=== PATIENT | male | born 1985 | race Caucasian/White ===

== ENCOUNTER → 2017-05-27 | Outpatient (CLI) | payer OTHER ==
[~2017-05-27] MED LIST: AMT25 PO; FLX/5 PO; ULT/50 PO
[2017-05-27 17:35] LABS: BASO % 0.4 %; BASO ABS # 0.03 K/uL (0-0.2); EOS % 6.6 %; EOS ABS # 0.48 K/uL (0-0.5); HEMATOCRIT 40.9 % (42-52); HEMOGLOBIN 14.5 g/dL (14.0-18.0); IG# 0.01 K/uL (0.00-0.02); LYMPH % 42.7 %; LYMPH ABS # 3.11 K/uL (1.2-3.4); MEAN CELL VOLUME 85.7 fL (80-100); MEAN CORPUSCULAR HEMOGLOBIN 30.4 pg (25-34); MEAN CORPUSCULAR HGB CONC 35.5 g/dl (32-36); MEAN PLATELET VOLUME 9.2 fL (7.4-10.4); MONO ABS # 0.51 K/uL (0.11-0.59); NEUT % 43.2 %; NEUT ABS # 3.14 K/uL (1.4-6.5); PLATELET COUNT 314 K/uL (130-400); RED CELL DISTRIBUTION WIDTH CV 13.2 % (11.5-14.5); RED CELL DISTRIBUTION WIDTH SD 41.3 fL (36.4-46.3); WHITE BLOOD COUNT 7.28 K/uL (4.8-10.8)
[2017-05-27 18:45] LABS: ALBUMIN 4.2 gm/dl (3.4-5.0); ALKALINE PHOSPHATASE 100 U/L (45-117); ALT/SGPT 46 U/L (12-78); AST/SGOT 24 U/L (15-37); TOTAL PROTEIN 8.2 gm/dl (6.4-8.2)
== END | disposition home or self-care (01) ==
LOC: C.LABPBG 15:51
PROVIDERS: ATTEND Family Medicine
DX: F11.20 Opioid dependence, uncomplicated (principal)

== ENCOUNTER 2017-11-03 12:22 | Inpatient (IN) | payer OTHER ==
[~2017-11-03] VITALS: Ht 167.6 cm; Wt 73.7 kg
--- NOTE | 2017-11-03 13:12 | EMERGENCY ROOM VISIT NOTE ---
History Report prepared by Allan: Arvind Torres Under the Supervision of: Dr. Erica De La Torre D.O. First contact with patient: 12:37 Chief Complaint: MENTAL HEALTH EVALUATION Stated Complaint: 302 History of Present Illness The patient is a 32 year old male who presents to the Emergency Room with complaints of an episode of suicidal statements occurring last night. The patient states that he has a previous history of anxiety and hepatitis C from heroin use. He notes that he has been going to [facility] for medically assisted treatment. He reports that [facility] has become a negative situation for him and he states that it has started to become stressful for him because he is getting negative feedback from his family for going. He notes that he stopped going to [facility] for a while and he reports that he then went in again to [facility]. The patient states that he recently got into a fight with his girlfriend who told him not to come home. He notes that he went home yesterday and got into another argument with his girlfriend. He reports that he said something to his girlfriend to make her think that he was going to harm himself. The patient states that he said "you guys make me want to hang myself" to his girlfriend which caused her to worry. He notes that his girlfriend then called police and he reports that he was brought to the emergency department via a 302. The patient states that he "does not have the balls to harm himself." He notes that he does not have any physical symptoms, recent injury, and recent illness. He reports that he smokes cigarettes but does not drink alcohol. The patient states that he takes daily Suboxone and took methamphetamines yesterday. He notes that he has not used heroin for eight years. He reports that he has a history of an L4-L5 disc problem and kidney stones. Per nurse and security guards, the patient was brought in by [facility] but no report was given and there was no 302 brought in. Source of History: patient Onset: last night Position: head Quality: other (suicidal statements) Timing: other (an episode ) Note: The patient denies any physical complaints. Review of Systems See HPI for pertinent positives & negatives. A total of 10 systems reviewed and were otherwise negative. Past Medical & Surgical Medical Problems: (1) Anxiety (2) Depression (3) Hepatitis C (4) Heroin abuse (5) Kidney stone (6) Low back pain (7) Suicidal ideation Family History Hypertension Kidney disease Kidney stones Social History Smoking Status: Never Smoker Alcohol Use: none Drug Use: other (methamphetamine) Marital Status: in relationship Housing Status: lives with significant other Occupation Status: employed Current/Historical Medications Scheduled Meloxicam (Mobic), 7.5 MG PO DAILY Ranitidine Hcl (Zantac), 150 MG PO DAILY Allergies Coded Allergies: No Known Allergies (Unverified , 11/03/17) Physical Exam Vital Signs Date Time Temp Pulse Resp B/P (MAP) Pulse Ox O2 Delivery O2 Flow Rate FiO2 11/03/17 17:53 88 18 135/75 100 Room Air 11/03/17 16:18 86 18 132/70 100 Room Air 11/03/17 14:28 85 16 140/90 98 Room Air 11/03/17 12:28 37.0 112 20 145/73 99 Room Air Physical Exam GENERAL: alert, well appearing, well nourished, no distress, non-toxic EYE EXAM: normal conjunctiva, PERRL and EOM's grossly intact OROPHARYNX: no exudate, no erythema, lips, buccal mucosa, and tongue normal and mucous membranes are moist NECK: supple, no nuchal rigidity, no adenopathy, non-tender LUNGS: Clear to auscultation. Normal chest wall mechanics HEART: no murmurs, S1 normal and S2 normal ABDOMEN: abdomen soft, non-tender, normo-active bowel sounds, no masses, no rebound or guarding. BACK: Back is symmetrical on inspection and there is no deformity, no midline tenderness, no CVA tenderness. SKIN: no rashes and no bruising UPPER EXTREMITIES: upper extremities are grossly normal. LOWER EXTREMITIES: No pitting edema. NEURO EXAM: Normal sensorium, cranial nerves II-XII grossly intact, normal speech, no gross weakness of arms, no gross weakness of legs. Medical Decision & Procedures Laboratory Results 11/03/17 13:18 Red Blood Count 4.93, Mean Corpuscular Volume 84.0, Mean Corpuscular Hemoglobin 28.4, Mean Corpuscular Hemoglobin Concent 33.8, Mean Platelet Volume 9.3, Neutrophils (%) (Auto) 60.7, Lymphocytes (%) (Auto) 26.3, Monocytes (%) (Auto) 11.5, Eosinophils (%) (Auto) 1.2, Basophils (%) (Auto) 0.2, Neutrophils # (Auto ) 4.87, Lymphocytes # (Auto) 2.11, Monocytes # (Auto) 0.92, Eosinophils # (Auto ) 0.10, Basophils # (Auto) 0.02 11/03/17 13:18 Test 11/03/17 12:45 11/03/17 13:18 Urine Color DK YELLOW Urine Appearance CLEAR (CLEAR) Urine pH 5.0 (4.5-7.5) Urine Specific [place]ridge 1.027 (1.000-1.030) Urine Protein 1+ (NEG) Urine Glucose (UA) NEG (NEG) Urine Ketones 3+ (NEG) Urine Occult Blood NEG (NEG) Urine Nitrite NEG (NEG) Urine Bilirubin NEG (NEG) Urine Urobilinogen NEG (NEG) Urine Leukocyte Esterase NEG (NEG) Urine WBC (Auto) 1-5 /hpf (0-5) Urine RBC (Auto) 0-4 /hpf (0-4) Urine Hyaline Casts (Auto) 1-5 /lpf (0-5) Urine Epithelial Cells (Auto) 5-10 /lpf (0-5) Urine Bacteria (Auto) NEG (NEG) Urine Opiates Screen NEG (NEG) Urine Methadone, Qualitative NEG (NEG) Urine Barbiturates NEG (NEG) Urine Phencyclidine (PCP) Level NEG (NEG) Ur Amphetamine/Methamphetamine POS (NEG) MDMA (Ecstasy) Screen POS (NEG) Urine Benzodiazepines Screen NEG (NEG) Urine Cocaine Metabolite NEG (NEG) Urine Marijuana (THC) POS (NEG) White Blood Count 8.03 K/uL (4.8-10.8) Red Blood Count 4.93 M/uL (4.7-6.1) Hemoglobin 14.0 g/dL (14.0-18.0) Hematocrit 41.4 % (42-52) Mean Corpuscular Volume 84.0 fL (80-100) Mean Corpuscular Hemoglobin 28.4 pg (25-34) Mean Corpuscular Hemoglobin Concent 33.8 g/dl (32-36) Platelet Count 258 K/uL (130-400) Mean Platelet Volume 9.3 fL (7.4-10.4) Neutrophils (%) (Auto) 60.7 % Lymphocytes (%) (Auto) 26.3 % Monocytes (%) (Auto) 11.5 % Eosinophils (%) (Auto) 1.2 % Basophils (%) (Auto) 0.2 % Neutrophils # (Auto) 4.87 K/uL (1.4-6.5) Lymphocytes # (Auto) 2.11 K/uL (1.2-3.4) Monocytes # (Auto) 0.92 K/uL (0.11-0.59) Eosinophils # (Auto) 0.10 K/uL (0-0.5) Basophils # (Auto) 0.02 K/uL (0-0.2) RDW Standard Deviation 41.5 fL (36.4-46.3) RDW Coefficient of Variation 13.7 % (11.5-14.5) Immature Granulocyte % (Auto) 0.1 % Immature Granulocyte # (Auto) 0.01 K/uL (0.00-0.02) Anion Gap 11.0 mmol/L (3-11) Est Creatinine Clear Calc Drug Dose 102.8 ml/min Estimated GFR () 125.5 Estimated GFR (Non- 108.2 BUN/Creatinine Ratio 28.5 (10-20) Calcium Level 8.9 mg/dl (8.5-10.1) Total Bilirubin 0.7 mg/dl (0.2-1) Direct Bilirubin 0.2 mg/dl (0-0.2) Aspartate Amino Transf (AST/SGOT) 132 U/L (15-37) Alanine Aminotransferase (ALT/SGPT) 66 U/L (12-78) Alkaline Phosphatase 97 U/L (45-117) Total Protein 8.7 gm/dl (6.4-8.2) Albumin 4.2 gm/dl (3.4-5.0) Thyroid Stimulating Hormone (TSH) 1.500 uIu/ml (0.300-4.500) Ethyl Alcohol mg/dL < 3.0 mg/dl (0-3) Laboratory results per my review. ED Course 1245: The patient was evaluated in room A5. A complete history and physical exam was performed. 1414: I spoke to the patient's spring encaser who spoke to the patient's girlfriend. She states that the patient went to his girlfriend's house today to get dress pants so that he would look nice when they found him. She notes that the patient stated that he has been using drugs for years, which have not worked to kill him. She reports that the patient then told his girlfriend that he wanted to then try something else. She states that the girlfriend then told the patient to leave, but then found him sneaking back into the garage to grab rope. She notes that the girlfriend then called police. She reports that the police found the patient in the [place] with the rope in the shape of a noose. She states that the patient's girlfriend is currently filling out a 302 petition. 1720: I signed the 302. The patient was accepted to [facility]. Medical Decision Differential diagnosis: Etiologies such as mood disorder, infection, hypoglycemia, electrolyte abnormalities, cardiac sources, intracerebral event, toxicologic, neurologic, as well as others were entertained. Medication Reconcilliation Current Medication List: was personally reviewed by me Blood Pressure Screening Patient's blood pressure: Elevated blood pressure Blood pressure disposition: Elevated BP felt to be situational Impression Primary Impression: Depression Additional Impressions: Suicidal ideation Substance abuse Scribe Attestation The scribe's documentation has been prepared under my direction and personally reviewed by me in its entirety. I confirm that the note above accurately reflects all work, treatment, procedures, and medical decision making performed by me. Departure Information Dispostion Mental Health Acute Care Referrals No Doctor, Assigned (PCP) Patient Instructions My [facility] Problem Qualifiers
[2017-11-03] MEDS ORDERED: RANI150T3 PO (13:28)
[2017-11-03] MEDS ORDERED: MELO7.5T5 PO (13:28)
[2017-11-03 13:45] LABS: BASO % 0.2 %; BASO ABS # 0.02 K/uL (0-0.2); EOS % 1.2 %; HEMATOCRIT 41.4 % (42-52); IG# 0.01 K/uL (0.00-0.02); LYMPH % 26.3 %; LYMPH ABS # 2.11 K/uL (1.2-3.4); MEAN CORPUSCULAR HEMOGLOBIN 28.4 pg (25-34); MEAN CORPUSCULAR HGB CONC 33.8 g/dl (32-36); MEAN PLATELET VOLUME 9.3 fL (7.4-10.4); MONO % 11.5 %; MONO ABS # 0.92 K/uL (0.11-0.59); NEUT % 60.7 %; NEUT ABS # 4.87 K/uL (1.4-6.5); PLATELET COUNT 258 K/uL (130-400); RED CELL DISTRIBUTION WIDTH CV 13.7 % (11.5-14.5); RED CELL DISTRIBUTION WIDTH SD 41.5 fL (36.4-46.3); WHITE BLOOD COUNT 8.03 K/uL (4.8-10.8)
[2017-11-03 14:20] LABS: ALBUMIN 4.2 gm/dl (3.4-5.0); CALCIUM 8.9 mg/dl (8.5-10.1); CREATININE 0.93 mg/dl (0.60-1.40); POTASSIUM 4.1 mmol/L (3.5-5.1); TOTAL PROTEIN 8.7 gm/dl (6.4-8.2)
[2017-11-03 17:53] VITALS: O2SAT 100
[2017-11-03] MEDS ORDERED: MAGNESIUM HYDROXIDE SUSP 30 ML UDC PO PRN (18:00)
[2017-11-03] MEDS ORDERED: hydrOXYzine HCL 25 MG TAB PO PRN ×2 (18:00)
[2017-11-03] MEDS ORDERED: HALOPERIDOL LACTATE 5 MG/ML 1 ML VIAL IM PRN (18:00)
[2017-11-03] MEDS ORDERED: BISMUTH SUBSALICYLATE PER ML OMNICELL CHARGE PO PRN (18:00)
[2017-11-03] MEDS ORDERED: ALUMINUM/MAGNESIUM SUSP 30 ML UDC PO PRN (18:00)
[2017-11-03] MEDS ORDERED: SODIUM CHLORIDE 0.65% NA SOLN 45 ML (OCEAN) PRN (18:00)
[2017-11-03] MEDS ORDERED: HALOPERIDOL 5 MG TAB PO PRN (18:00)
[2017-11-03] MEDS ORDERED: NICOTINE POLACRILEX 2 MG GUM MT PRN (18:00)
[2017-11-03 18:33] VITALS: BP 147/70; PULSE 77; TEMP 36.5; Ht 167.6 cm; Wt 73.7 kg
[2017-11-04 07:04] VITALS: BP_SYST 108; BP_SYST 123; BP_DIAS 71; BP_DIAS 73; PULSE 85; PULSE 87; TEMP 36.8
[2017-11-04] MEDS: NICOTINE 14 MG/24 HR TDSY TD SCH (08:23)
--- NOTE | 2017-11-04 11:01 | Psychiatric History & Physical ---
History Date of Service Nov 04, 2017. Identifying Data Gilberto Ulrich is a 32-year-old male admitted on Nov 03, 2017 at 17:56 who currently lives in [place] and was admitted after a suicide attempt by hanging. He was brought into the emergency room by police, and was admitted on a 302 involuntary commitment. Chief Complaint "Me and my girl were fighting one night, so I got kicked out for the night...". History of Present Illness According to records, the patient presented to the emergency room yesterday with police who stated they found the patient in the lazo with a rope made into a noose. His girlfriend was present in the ER and stated that yesterday morning he came to her residence and asked her to get him dress pants and a dress shirt because he wanted to be "dressed up when they find me." He told her that "apparently drugs are not going to kill me, so that is a failed suicide attempt. I need to try something different." He then went to the [facility] and got a rope, and left in his car. His girlfriend called his counselor at [facility], who called the police. The police found him in the lazo with the rope which he had made into a noose. She reported reported that the patient has a long addiction history and has been in rehab many times. He had a counselor at [facility], but has not done in months, and does not see a psychiatrist or take medications. The patient himself denied all of the above, and stated that he was in the lazo because he was trying to find money he lost the night before, and was using his sweatshirt tied in a knot to knock over weeds. His drug screen was positive for methamphetamine/amphetamine, MDMA, and THC, and he was tangential and a poor historian. He admitted to meth use, and said he wanted to get back on Suboxone , which she had been getting off the streets. He started to go through opiate withdrawal, so decided to use meth. He said he been noncompliant with therapy at [facility] because he was traveling for a job. He reported his main stressor as "relationship issues." On my assessment, the patient states he got into a fight with his girlfriend whom he lives with the night prior to presentation, so went to a field nearby and "camped out." He used a large amount of methamphetamine IV while there, stating he was withdrawing from Suboxone, but could not get any more Suboxone, so got meth instead. He says he "did a really big shot of meth" and was "surprised it didn't kill me." Denies that he was trying to end his life, but says as he was doing it, he thought he might . He said he lost some money in the field, so returned to the house the next day to get clean clothes and "I think she thought I was gonna hang myself, and she even asked me, and I said no. " He changed his clothes and took a piece of rope "with a loop on one end" and an old sweatshirt with him, as he wanted to look for his money. He says when came out of the lazo "there was a bunch of police there, my girl called and said I was gonna go up to the lazo and hang myself." He admits he was "depressed because we were fighting, "and she was angry with him because she found out he was using Suboxone. He says his GF doesn't use drugs, but isn't concerned she'll end the relationship, "she still loves me." States "people think it's weird because of the age difference, but it's not weird for us" (She is in her mid 50s). He admits he doesn't remember some of what happened the past 2 days. He denies persistent depressive symptoms, other than in the context of arguing with his GF. He denies persistent mood symptoms (says mood was down for about 1 day due to arguing with girlfriend), and denies any history of abdirizak, psychosis, or anxiety other than when intoxicated/ withdrawing. He is vague and gives conflicting reports about his drug use, unable to state when he last used various substances or for how long. Past Psychiatric History Current OP Treatment: no current treatment Prior OP Treatment: therapist ([facility] at [facility] for about 6 mos, until discharged for noncompliance) Prior Psych Hospitalizations: none Access to a Gun: No Suicide Attempts: Yes (Took a rope into the lazo and made a noose with intent to hang himself the day of admission.) Past Medication Trials Suboxone -getting illegally currently Denies other psychotropic medications Past Medical/Surgical History (1) Opiate abuse (2) Methamphetamine abuse (3) Methamphetamine intoxication (4) Hepatitis C (5) Nicotine dependence No PCP Allergies Allergies: Coded Allergies: No Known Allergies (Unverified , 11/03/17) Home Medications Scheduled Meloxicam (Mobic), 7.5 MG PO DAILY Ranitidine Hcl (Zantac), 150 MG PO DAILY Family History Hypertension Kidney disease Kidney stones History of Suicide: No History of Substance Abuse: Yes (aunt and cousin with alcohol and drug addiction) Psychiatric History: No Alcohol Use Alcohol Use In Past 12 Months: Yes (1-2 cocktails a year) AUDIT Total Score: 1 Smoking Use Smoking Status: Current Every Day Smoker (1 PPD x 10 yrs) Substance History Heroin -started using at age 15, "I was a heroin addict." Not sure when he last used. Denies use in past 10 years, but vague/evasive. Suboxone - Started it around age 20, was getting it illegally except for about 6 months when it was prescribed through [facility], but kicked out of MAT. Then started getting it off the streets, last use 1 day prior to admission. Methamphetamine -used yesterday IV, vague about frequency of use. States started using a year ago, estimates used 2-3 times. Cannabis -started at a young age, using several times a week. MDMA - UDS positive Treatment: [facility]hab about 1 year ago for Suboxone/opiate abuse. Outpatient services at [facility], last went months ago, says he was discharged due to noncompliance and ongoing drug use. Gives inconsistent reports (told med student he had +UDS at [facility], tells me he never had one). Personal History Lives in: [place] with girlfriend, girlfriend's daughter and 3 week old grandson Childhood: Has never had contact with his biological father. Estranged from his mother and 1 sibling. 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 Spiritual Affiliation: Denies Legal History: reported (History of criminal charges for theft and receiving stolen property, driving without a license, and reports he was incarcerated for unpaid fines. Also reported arrests as a juvenile.) Psychological Trauma History: Denies Hx Traumatic Event Additional Comments: States he's been with his GF for 9 years, and she is 24 years older than his. States she is his his only support, and "she's my world." Review of Systems 10 systems reviewed, positive for sweats, muscle pain. Others negative except as stated above. Examination Physical Examination A physical exam was performed in the ER prior to admission to the unit by Dr. De La Torre. I accept that physical as correct/medical clearance for the inpatient physical exam. Vital Signs Vital Signs Past 12 Hours Date Time Temp Pulse Resp B/P (MAP) Pulse Ox O2 Delivery O2 Flow Rate FiO2 11/04/17 07:04 36.8 87 16 123/71 85 108/73 Laboratory Results Last 24 Hours Test 11/03/17 12:45 11/03/17 13:18 Urine Color DK YELLOW Urine Appearance CLEAR Urine pH 5.0 Urine Specific [place] 1.027 Urine Protein 1+ Urine Glucose (UA) NEG Urine Ketones 3+ Urine Occult Blood NEG Urine Nitrite NEG Urine Bilirubin NEG Urine Urobilinogen NEG Urine Leukocyte Esterase NEG Urine WBC (Auto) 1-5 /hpf Urine RBC (Auto) 0-4 /hpf Urine Hyaline Casts (Auto) 1-5 /lpf Urine Epithelial Cells (Auto) 5-10 /lpf Urine Bacteria (Auto) NEG Urine Opiates Screen NEG Urine Methadone, Qualitative NEG Urine Barbiturates NEG Urine Phencyclidine (PCP) Level NEG Ur Amphetamine/Methamphetamine POS MDMA (Ecstasy) Screen POS Urine Benzodiazepines Screen NEG Urine Cocaine Metabolite NEG Urine Marijuana (THC) POS White Blood Count 8.03 K/uL Red Blood Count 4.93 M/uL Hemoglobin 14.0 g/dL Hematocrit 41.4 % Mean Corpuscular Volume 84.0 fL Mean Corpuscular Hemoglobin 28.4 pg Mean Corpuscular Hemoglobin Concent 33.8 g/dl Platelet Count 258 K/uL Mean Platelet Volume 9.3 fL Neutrophils (%) (Auto) 60.7 % Lymphocytes (%) (Auto) 26.3 % Monocytes (%) (Auto) 11.5 % Eosinophils (%) (Auto) 1.2 % Basophils (%) (Auto) 0.2 % Neutrophils # (Auto) 4.87 K/uL Lymphocytes # (Auto) 2.11 K/uL Monocytes # (Auto) 0.92 K/uL Eosinophils # (Auto) 0.10 K/uL Basophils # (Auto) 0.02 K/uL RDW Standard Deviation 41.5 fL RDW Coefficient of Variation 13.7 % Immature Granulocyte % (Auto) 0.1 % Immature Granulocyte # (Auto) 0.01 K/uL Sodium Level 136 mmol/L Potassium Level 4.1 mmol/L Chloride Level 102 mmol/L Carbon Dioxide Level 23 mmol/L Anion Gap 11.0 mmol/L Blood Urea Nitrogen 26 mg/dl Creatinine 0.93 mg/dl Est Creatinine Clear Calc Drug Dose 102.8 ml/min Estimated GFR () 125.5 Estimated GFR (Non- 108.2 BUN/Creatinine Ratio 28.5 Random Glucose 70 mg/dl Calcium Level 8.9 mg/dl Total Bilirubin 0.7 mg/dl Direct Bilirubin 0.2 mg/dl Aspartate Amino Transf (AST/SGOT) 132 U/L Alanine Aminotransferase (ALT/SGPT) 66 U/L Alkaline Phosphatase 97 U/L Total Protein 8.7 gm/dl Albumin 4.2 gm/dl Thyroid Stimulating Hormone (TSH) 1.500 uIu/ml Ethyl Alcohol mg/dL < 3.0 mg/dl Mental Examination During interview pt is: alert and oriented Appearance: appropriately dressed, appropriately groomed Eye contact is: good Motor behavior is: steady gait & station, psychomotor agitation Speech: loud (hyperverbal) Affect: mood congruent Mood is: anxious Thought process: goal directed (evasive, vague answers) Thought content: reality based without delusions Suicidal thought are: denied (but per 302 made a noose and went to [place] to kill himself) Homicidal thoughts are: denied Hallucinations: denies auditory, denies visual Cognition: attention grossly intact, language grossly intact, other (memory impairment vs lack of honesty) Intelligence estimated to be: consistent with level of education Insight: impaired Judgement: impaired Impression / Recommendations Impression 32-year-old white male with a significant substance abuse history (IV heroin, methamphetamine, cannabis, and Suboxone) but no other psychiatric history who presents after a suicide attempt by hanging in the context of an argument with his girlfriend over his substance use. He presented with methamphetamine intoxication, and is less than reliable historian. He denies the reports from his girlfriend and police that he went to the [place]zo with a noose with intent to hang himself. He is admitted on a 302 involuntary commitment, and we will need to gather collateral information to further assess risk. He denies any persistence mood, anxiety, or psychotic symptoms, and substance abuse is likely his primary diagnosis. He would benefit from inpatient rehab, but at this point is interested only in returning to outpatient treatment at [facility] and receiving Suboxone there. We will need to coordinate with his provider there, as he has been noncompliant with treatment and was actually discharged from there MAT program due to noncompliance. At this point, he requires inpatient treatment due to the high risk for suicide if discharged. Inventory Assets Strengths: Has housing, has had substance abuse treatment in the past Needs: abstinence from substances, compliance with treatment, honesty in treatment Risk Factors Assessment Male: Yes : Yes /single/: Yes Higher / Fall in social status: No Access to guns: No Health problems: Yes Mental Health Diagnoses: Yes Substance use disorders: Yes Previous attempt: No Family history of suicide: No Previous psychiatric stay: No Hopelessness: No Smoker: Yes Protective Factors Assessment Shinto beliefs: No : No Responsible for young children: No Employed: No Stable relationships: Yes Supportive family: No Good rapport with provider: No Recommendations (1) Depression 06/07--Differential includes MDD (patient denies ongoing depressive symptoms), personality disorder, and substance induced mood disorder (most likely diagnosis ). --Continue inpatient treatment on a 302 involuntary commitment, and continue to gather information towards the need for ongoing commitment. Will need to determine need to file for a 303 tomorrow. Get collateral from GF and counselor at [facility]. Patient denying that he had a suicide attempt yesterday, although GF and police both report he had a noose and went into the lazo with intent to hang himself. --Q 15 min checks for safety. --Encourage group attendance and participation, work on health coping skills and safety plan. --Family meeting with GF. --Get collateral from previous therapist at [facility], specifically with regards to concerns for underlying mental illness. (2) Opiate abuse 11/04--monitor for signs of withdrawal, and considering use of clonidine protocol if needed. --Educated about the risks of ongoing substance abuse and the recommendations for abstinence from drugs of abuse. Patient has poor insight and is not necessarily forthcoming with information. --Encourage inpatient rehab. --Avoid controlled substances due to the high risk of abuse/misuse/negative outcomes. --Brief intervention was offered and accepted. Intervention was greater than 5 min in length. Brief interventions include: 1. Assess Readiness to Quit, 2. Advise: Help Patient to Reduce or Abstain from Drug Use, 3. Agree: Set Specific, Feasible Goals, 4. Assist: Anticipate barriers, Problem-Solving Solutions. Social work to 5. Arrange: Referrals to appropriate treatment. Summary of intervention: The patient is in precontemplation stage with regards to transtheoretical model of change. The patient is advised to decrease drug use due to negative effect on mental health and risk of interactions with prescription medications. The patient agreed to return to outpatient treatment at [facility] and will be provided with recovery materials to continue to education self on how to cope with their condition without using. (3) Methamphetamine abuse 11/04--see above. (4) Nicotine dependence 11/04--patch and gum as needed for cravings. Smoking cessation education. Refer for substance abuse treatment. (5) Hepatitis C AST elevated at 132, ALT WNLs. Patient denies alcohol use, but cannot rule out surreptitious alcohol use. Also has h/o hepatitis C per chart. elevated Follow- up with PCP. CPT Code Initial Hospital Care: 62310 Problem Qualifiers (1) Depression: Depression Type: unspecified Qualified Codes: F32.9 - Major depressive disorder, single episode, unspecified
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
[2017-11-04] MEDS: ACETAMINOPHEN 325 MG TAB PO PRN (21:02)
[2017-11-05 06:53] VITALS: BP_SYST 115; BP_SYST 129; BP_DIAS 73; BP_DIAS 86; PULSE 66; PULSE 84; TEMP 36.5
[2017-11-05] MEDS: NICOTINE 14 MG/24 HR TDSY TD SCH (08:50)
--- NOTE | 2017-11-05 10:19 | Psychiatric Progress Notes ---
Progress Note Date of Service Nov 05, 2017. Interval History 32 yo male admitted involuntarily after abusing drugs, getting paranoid and threatening suicide by hanging. Chief Complaint "Its hard when people don't understand addictions. ". Subjective Patient was seen & assessed interval progress reviewed with Treatment Team. The patient says that he is doing OK today and focuses his conversation on explaining his addictions. He admits that he has been an addict for a long time and admits that bad behaviors go along with his addictions including lying. He says that he was doing well when in treatment with [facility], after his last rehab, and felt that they really cared about him as an individual. He was on Suboxone, but did not tell his girlfriend that, as she does not support it, seeing it only as "substituting one drug for another.". 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 He was then dismissed from [facility]'s program, and he reports that without that treatment and Suboxone, he was overwhelmed and began using again. In his discussion he takes very little responsibility for the string of events. I inform him that [facility] is not willing to take him back unless he goes to inpatient rehab, and after discussion he is willing to try [facility] inpatient since they run [facility]. He denies SI today, is eating well, and had good sleep last night. Review of Systems Constitutional: No fever, No chills, No sweats, No weight loss, No weakness, No fatigue, No problem reported ENT: No hearing loss, No unusual epistaxis, No nasal symptoms, No sore throat, No tinnitus, No dental problems, No trouble swallowing, No problem reported Respiratory: No cough, No sputum, No wheezing, No shortness of breath, No dyspnea on exertion, No dyspnea at rest, No hemoptysis, No problem reported Cardiovascular: No chest pain, No orthopnea, No PND, No edema, No claudication , No palpitations, No problem reported Abdomen: No pain, No nausea, No vomiting, No diarrhea, No constipation, No GI bleeding, No problem reported Musculoskeletal: No joint pain, No muscle pain, No swelling, No calf pain, No problem reported Neurologic: No memory loss, No paralysis, No weakness, No numbness/tingling, No vertigo, No balance problems, No problem reported Psychiatric: No depression symptoms, No anhedonism, No anxiety, No insomnia, No substance abuse, No problem reported Integumentary: No rash, No itch, No new/changing skin lesions, No color change , No bleeding, No problem reported Sleep Information Total Hours of Sleep: 7.75 Meal Information Percent of Breakfast Consumed: 100 Percent of Lunch Consumed: 100 Percent of Dinner Consumed: 100 Mental Status Exam During interview pt is: alert and oriented Appearance: appropriately dressed, appropriately groomed Eye contact is: good Motor behavior is: steady gait & station, psychomotor agitation Speech: loud (hyperverbal), other (rapid) Affect: blunted Mood is: anxious Thought process: goal directed (evasive, vague answers), tangential Thought content: reality based without delusions Suicidal thought are: denied (but per 302 made a noose and went to [place] to kill himself) Homicidal thoughts are: denied Hallucinations: denies auditory, denies visual Cognition: attention grossly intact, language grossly intact, other (memory impairment vs lack of honesty) Intelligence estimated to be: consistent with level of education Insight: impaired Judgement: impaired Impression Patient now willing for rehab and will explore options with [facility]. He has a meeting scheduled with his girlfriend today, who has expressed some ambivalence about staying with him, which will need to be discussed. There is no evidence of paranoia or ongoing psychosis or suicidality. It is reasonable to see his preadmission behaviors in the context of meth abuse. At this time, he is psychiatrically stable to attend rehab. Plan (1) Depression 06/07--Differential includes MDD (patient denies ongoing depressive symptoms), personality disorder, and substance induced mood disorder (most likely diagnosis ). --Continue inpatient treatment on a 302 involuntary commitment, and continue to gather information towards the need for ongoing commitment. Will need to determine need to file for a 303 tomorrow. Get collateral from and counselor at [facility]. Patient denying that he had a suicide attempt yesterday, although and police both report he had a noose and went into the [place] with intent to hang himself. --Q 15 min checks for safety. --Encourage group attendance and participation, work on health coping skills and safety plan. --Family meeting with . --Get collateral from previous therapist at [facility], specifically with regards to concerns for underlying mental illness. 11/05 - No SI - Meeting with girlfriend today (2) Opiate abuse 11/04--monitor for signs of withdrawal, and considering use of clonidine protocol if needed. --Educated about the risks of ongoing substance abuse and the recommendations for abstinence from drugs of abuse. Patient has poor insight and is not necessarily forthcoming with information. --Encourage inpatient rehab. --Avoid controlled substances due to the high risk of abuse/misuse/negative outcomes. --Brief intervention was offered and accepted. Intervention was greater than 5 min in length. Brief interventions include: 1. Assess Readiness to Quit, 2. Advise: Help Patient to Reduce or Abstain from Drug Use, 3. Agree: Set Specific, Feasible Goals, 4. Assist: Anticipate barriers, Problem-Solving Solutions. Social work to 5. Arrange: Referrals to appropriate treatment. Summary of intervention: The patient is in precontemplation stage with regards to transtheoretical model of change. The patient is advised to decrease drug use due to negative effect on mental health and risk of interactions with prescription medications. The patient agreed to return to outpatient treatment at [facility] and will be provided with recovery materials to continue to education self on how to cope with their condition without using. (3) Methamphetamine abuse 11/04--see above. 11/05 - [facility] will not accept back unless he goes to rehab - Patient will to explore rehab with [facility] inpatient (4) Nicotine dependence 11/04--patch and gum as needed for cravings. Smoking cessation education. Refer for substance abuse treatment. (5) Hepatitis C AST elevated at 132, ALT WNLs. Patient denies alcohol use, but cannot rule out surreptitious alcohol use. Also has h/o hepatitis C per chart. elevated Follow- up with PCP. Visit Code E&M Code: 71260 Inventory Assets Strengths: Has housing, has had substance abuse treatment in the past Needs: abstinence from substances, compliance with treatment, honesty in treatment Risk Factors Assessment Male: Yes : Yes /single/: Yes Higher / Fall in social status: No Health problems: Yes Mental Health Diagnoses: Yes Substance use disorders: Yes Previous attempt: No Family history of suicide: No Previous psychiatric stay: No Hopelessness: No Smoker: Yes Protective Factors Assessment Nondenominational beliefs: No : No Responsible for young children: No Employed: No Stable relationships: Yes Supportive family: No Good rapport with provider: No Data Vital Signs Last 24 Hrs: Date Time Temp Pulse Resp B/P (MAP) Pulse Ox O2 Delivery O2 Flow Rate FiO2 11/05/17 06:53 36.5 84 16 115/73 66 129/86 Meds Administered Last 24 Hrs: Meds Administered (Past 24Hrs) Medications (Trade) Dose Ordered Sig/Talib Route Start Time Stop Time Status Last Admin Dose Admin Acetaminophen (Tylenol Tab) 650 mg Q4H PRN PO 11/03/17 18:00 12/03/17 17:59 11/04/17 21:02 650 MG Nicotine (Nicoderm Cq 14MG Patch) 1 patch QAM TD 11/04/17 09:00 12/04/17 08:59 11/05/17 08:50 1 PATCH Lab Results Last 24 Hrs: 11/03/17 13:18 Red Blood Count 4.93, Mean Corpuscular Volume 84.0, Mean Corpuscular Hemoglobin 28.4, Mean Corpuscular Hemoglobin Concent 33.8, Mean Platelet Volume 9.3, Neutrophils (%) (Auto) 60.7, Lymphocytes (%) (Auto) 26.3, Monocytes (%) (Auto) 11.5, Eosinophils (%) (Auto) 1.2, Basophils (%) (Auto) 0.2, Neutrophils # (Auto ) 4.87, Lymphocytes # (Auto) 2.11, Monocytes # (Auto) 0.92, Eosinophils # (Auto ) 0.10, Basophils # (Auto) 0.02 11/03/17 13:18 Test 11/03/17 12:45 11/03/17 13:18 Urine Color DK YELLOW Urine Appearance CLEAR (CLEAR) Urine pH 5.0 (4.5-7.5) Urine Specific [place] 1.027 (1.000-1.030) Urine Protein 1+ (NEG) Urine Glucose (UA) NEG (NEG) Urine Ketones 3+ (NEG) Urine Occult Blood NEG (NEG) Urine Nitrite NEG (NEG) Urine Bilirubin NEG (NEG) Urine Urobilinogen NEG (NEG) Urine Leukocyte Esterase NEG (NEG) Urine WBC (Auto) 1-5 /hpf (0-5) Urine RBC (Auto) 0-4 /hpf (0-4) Urine Hyaline Casts (Auto) 1-5 /lpf (0-5) Urine Epithelial Cells (Auto) 5-10 /lpf (0-5) Urine Bacteria (Auto) NEG (NEG) Urine Opiates Screen NEG (NEG) Urine Methadone, Qualitative NEG (NEG) Urine Barbiturates NEG (NEG) Urine Phencyclidine (PCP) Level NEG (NEG) Ur Amphetamine/Methamphetamine POS (NEG) MDMA (Ecstasy) Screen POS (NEG) Urine Benzodiazepines Screen NEG (NEG) Urine Cocaine Metabolite NEG (NEG) Urine Marijuana (THC) POS (NEG) White Blood Count 8.03 K/uL (4.8-10.8) Red Blood Count 4.93 M/uL (4.7-6.1) Hemoglobin 14.0 g/dL (14.0-18.0) Hematocrit 41.4 % (42-52) Mean Corpuscular Volume 84.0 fL (80-100) Mean Corpuscular Hemoglobin 28.4 pg (25-34) Mean Corpuscular Hemoglobin Concent 33.8 g/dl (32-36) Platelet Count 258 K/uL (130-400) Mean Platelet Volume 9.3 fL (7.4-10.4) Neutrophils (%) (Auto) 60.7 % Lymphocytes (%) (Auto) 26.3 % Monocytes (%) (Auto) 11.5 % Eosinophils (%) (Auto) 1.2 % Basophils (%) (Auto) 0.2 % Neutrophils # (Auto) 4.87 K/uL (1.4-6.5) Lymphocytes # (Auto) 2.11 K/uL (1.2-3.4) Monocytes # (Auto) 0.92 K/uL (0.11-0.59) Eosinophils # (Auto) 0.10 K/uL (0-0.5) Basophils # (Auto) 0.02 K/uL (0-0.2) RDW Standard Deviation 41.5 fL (36.4-46.3) RDW Coefficient of Variation 13.7 % (11.5-14.5) Immature Granulocyte % (Auto) 0.1 % Immature Granulocyte # (Auto) 0.01 K/uL (0.00-0.02) Anion Gap 11.0 mmol/L (3-11) Est Creatinine Clear Calc Drug Dose 102.8 ml/min Estimated GFR () 125.5 Estimated GFR (Non- 108.2 BUN/Creatinine Ratio 28.5 (10-20) Calcium Level 8.9 mg/dl (8.5-10.1) Total Bilirubin 0.7 mg/dl (0.2-1) Direct Bilirubin 0.2 mg/dl (0-0.2) Aspartate Amino Transf (AST/SGOT) 132 U/L (15-37) Alanine Aminotransferase (ALT/SGPT) 66 U/L (12-78) Alkaline Phosphatase 97 U/L (45-117) Total Protein 8.7 gm/dl (6.4-8.2) Albumin 4.2 gm/dl (3.4-5.0) Thyroid Stimulating Hormone (TSH) 1.500 uIu/ml (0.300-4.500) Ethyl Alcohol mg/dL < 3.0 mg/dl (0-3) Problem Qualifiers (1) Depression: Depression Type: unspecified Qualified Codes: F32.9 - Major depressive disorder, single episode, unspecified
--- NOTE | 2017-11-05 19:49 | Medical Student: BHU Only ---
Psychiatric Progress Note IDENTIFYING INFORMATION: Gilberto Camara is a 32yo male with 302 petition by girlfriend signed by Dr. Longo and up on 11/08/17 at. Brought to ED by police made suicidal threats to girlfriend and she saw him in garage getting rope and she called police. Lives in [place] with girlfriend of 9 yrs and girlfriends daughter. CC: feel well SUBJECTIVE: Pt was seen and interval progress was reviewed at treatment team. Pt reports that he is "fine" and is interested in going to inpatient at [facility] because he "really likes" the people at [facility] (and [facility] is the [facility] for [facility]). He had a 2hr family meeting with his girlfriend of 10yrs in which she voiced her "concerns about his addiction" and the unrest and turmoil it has created in her life. She continues to be supportive of him and pt says he is "aware of how you have been affected." Pt states he is motivated to go to rehab and "get my life together." Pt says he is sleeping "great" and eating well. Pt denies SI/HI. Denies feelings of depression and hopelessness. Denies lifetime hx of depression; just situationally depressed at times and deals with appropriately. Denies lifetime hx of abdirizak; after rehab this yr girlfriend said he was acting manic, but symptoms described do not meet manic or hypomanic criteria. Denies AVH. Denies constant worrying or anxiety symptoms. 10 system ROS negative. OBJECTIVE: VS at 06:53- temp 36.5 pulse 66 BP 124/86 RR 16 Meds Administered (Past 24Hrs) Medications (Trade) Dose Ordered Sig/Talib Route Start Time Stop Time Status Last Admin Dose Admin Nicotine (Nicoderm Cq 14MG Patch) 1 patch QAM TD 11/04/17 09:00 12/04/17 08:59 11/05/17 08:50 1 PATCH MENTAL STATUS EXAM: Pt was less guarded and cautious when giving answers. Cooperative. Eye contact is good Motor behavior is normal Speech: normal volume, rate, and tone Affect: anxious, full range Mood: "good". Thought process: tangential at times Thought content: reality based w/o delusions Perception:denies AH/VH denies SI/HI Cognition: language and memory intact Insight is estimated to be fair. Judgment is estimated to be fair. IMPRESSION: 32yo male with past substance use disorder (heroin, meth, THC, suboxone). Brought to ED by police after making suicidal threats to girlfriend and she saw him in garage getting rope. He denies SI and believes his previous SI was substance-induced (methamphetamine). He does not endorse any current or lifetime mood disorder symptoms. From collateral information from girlfriend, pt may have had periods of depression and abdirizak that were not substance induced , but the pt has rarely ever not been abusing some drugs that it is difficult to clinically assess and diagnosis a mood disorder. Symptoms reported by girlfriend are need for little sleep, pressured speech, impulsivity as well as depressive symptoms. Pt may benefit from trial of a mood stabilizer. But, an inpatient rehab is most important at the current time. . PLAN: 1. SI related to mood disorder or substance-induced (methamphetamine) a. q15 checks, develop safety plan, and encourage group attendance b. [facility] (11/05) 2. Substance use disorder (methamphetamines, suboxone, THC) a. encourage abstinence b. 28-day inpatient rehab recommended or intensive 90-day residential treatment program; referral to [facility] today (11/05) 3. elevated AST a. ddx includes chronic hepatitis C, alcohol use (classic 2:1 AST:ALT elevation) 4. Aftercare planning a. 28-day inpatient rehab recommended or intensive 90-day residential treatment program must be completed b/f [facility] will accept him back into their program
[2017-11-05] MEDS: ACETAMINOPHEN 325 MG TAB PO PRN (20:24)
[2017-11-06 07:09] VITALS: BP_SYST 107; BP_SYST 115; BP_DIAS 75; BP_DIAS 86; PULSE 83; PULSE 85; TEMP 36.6
[2017-11-06] MEDS: NICOTINE 14 MG/24 HR TDSY TD SCH (08:02)
[2017-11-06] MEDS ORDERED: NURSING VERBAL MED ORDER ONE (12:00)
[2017-11-06] MEDS ORDERED: CLONIDINE HCL 0.1 MG TAB PO PRN (12:15)
[2017-11-06] MEDS ORDERED: DIPHENOXYLATE/ATROPINE 2.5/0.025MG TAB PO PRN (12:15)
[2017-11-06 12:19] VITALS: BP 125/73; PULSE 79; TEMP 36.7
[2017-11-06] MEDS ORDERED: CLONIDINE HCL 0.1 MG TAB PO ONE (12:30)
--- NOTE | 2017-11-06 14:52 | Psychiatric Progress Notes ---
Progress Note Date of Service Nov 06, 2017. Interval History 32 yo male admitted involuntarily after abusing drugs, getting paranoid and threatening suicide by hanging. Chief Complaint "I feel better, actually". Subjective Patient was seen & assessed interval progress reviewed with Treatment Team. Pt' s 302 will be up Wednesday at 17:22. This AM he c/o increased waking last night, sweaty palms, restlessness, and believed he was having some w/d from the Suboxone. Clonidine protocol started w/ good effect and well tolerated. "It really helped. I feel good now." Reviewed his account of admission circumstances. Continues to deny suicidal intent and denies SI, HI, or PDW presently. He states he expects to go to rehab and willing to pursue admission to [facility] if possible. His alternative plan is to seek assistance from [facility] counselor with whom he perceives a good rapport. He describes mood as "pretty good." Review of Systems Constitutional: + sweats (resolved) Psychiatric: + problem reported (denies SI, AVH) Sleep Information Total Hours of Sleep: 7.50 Meal Information Percent of Breakfast Consumed: 95 Percent of Lunch Consumed: 100 Percent of Dinner Consumed: 100 Mental Status Exam During interview pt is: alert and oriented Appearance: appropriately dressed, appropriately groomed Eye contact is: good Motor behavior is: steady gait & station, psychomotor agitation Speech: normal in rate, rhythm & volume Affect: other (calm) Mood is: other (good) Thought process: clear, coherent Thought content: reality based without delusions Suicidal thought are: denied (but per 302 made a noose and went to [facility] to kill himself) Homicidal thoughts are: denied Hallucinations: denies auditory, denies visual Cognition: attention grossly intact, language grossly intact Intelligence estimated to be: consistent with level of education Insight: limited Judgement: limited Impression Patient willing for rehab and considering [facility] admission. There is no evidence of paranoia or ongoing psychosis or suicidality. Plan (1) Depression 06/07--Differential includes MDD (patient denies ongoing depressive symptoms), personality disorder, and substance induced mood disorder (most likely diagnosis ). --Continue inpatient treatment on a 302 involuntary commitment, and continue to gather information towards the need for ongoing commitment. Will need to determine need to file for a 303 tomorrow. Get collateral from GF and counselor at [facility]. Patient denying that he had a suicide attempt yesterday, although GF and police both report he had a noose and went into the [place] with intent to hang himself. --Q 15 min checks for safety. --Encourage group attendance and participation, work on health coping skills and safety plan. --Family meeting with GF. --Get collateral from previous therapist at [facility], specifically with regards to concerns for underlying mental illness. 11/05 - No SI - Meeting with girlfriend today 11/06 - continues to deny SI and we expect likely discharge on Wednesday when 302 expires unless there is a change in clinical status or new information that would suggest elevated safety risk becomes apparent. (2) Opiate abuse 11/04--monitor for signs of withdrawal, and considering use of clonidine protocol if needed. --Educated about the risks of ongoing substance abuse and the recommendations for abstinence from drugs of abuse. Patient has poor insight and is not necessarily forthcoming with information. --Encourage inpatient rehab. --Avoid controlled substances due to the high risk of abuse/misuse/negative outcomes. --Brief intervention was offered and accepted. Intervention was greater than 5 min in length. Brief interventions include: 1. Assess Readiness to Quit, 2. Advise: Help Patient to Reduce or Abstain from Drug Use, 3. Agree: Set Specific, Feasible Goals, 4. Assist: Anticipate barriers, Problem-Solving Solutions. Social work to 5. Arrange: Referrals to appropriate treatment. Summary of intervention: The patient is in precontemplation stage with regards to transtheoretical model of change. The patient is advised to decrease drug use due to negative effect on mental health and risk of interactions with prescription medications. The patient agreed to return to outpatient treatment at [facility] and will be provided with recovery materials to continue to education self on how to cope with their condition without using. 11/06 - started on clonodine protocol this AM for mild w/d sx. tolerated well w/ good effect. (3) Methamphetamine abuse 11/04--see above. 11/05 - [facility] will not accept back unless he goes to rehab - Patient will to explore rehab with [facility] inpatient 11/06 - pt expressing willingness to pursue inpatient rehab admission and will facilitate as able (4) Nicotine dependence 11/04--patch and gum as needed for cravings. Smoking cessation education. Refer for substance abuse treatment. (5) Hepatitis C AST elevated at 132, ALT WNLs. Patient denies alcohol use, but cannot rule out surreptitious alcohol use. Also has h/o hepatitis C per chart. elevated Follow- up with PCP. Visit Code E&M Code: 58738 Inventory Assets Strengths: Has housing, has had substance abuse treatment in the past Needs: abstinence from substances, compliance with treatment, honesty in treatment Risk Factors Assessment Male: Yes : Yes /single/: Yes Higher / Fall in social status: No Health problems: Yes Mental Health Diagnoses: Yes Substance use disorders: Yes Previous attempt: No Family history of suicide: No Previous psychiatric stay: No Hopelessness: No Smoker: Yes Protective Factors Assessment Gnosticist beliefs: No : No Responsible for young children: No Employed: No Stable relationships: Yes Supportive family: No Good rapport with provider: No Data Vital Signs Last 24 Hrs: Date Time Temp Pulse Resp B/P (MAP) Pulse Ox O2 Delivery O2 Flow Rate FiO2 11/06/17 12:19 36.7 79 16 125/73 11/06/17 07:09 36.6 85 16 107/86 83 115/75 Meds Administered Last 24 Hrs: Meds Administered (Past 24Hrs) Medications (Trade) Dose Ordered Sig/Talib Route Start Time Stop Time Status Last Admin Dose Admin Clonidine HCl (Catapres Tab) 0.1 mg 1230 ONCE PO 11/06/17 12:30 11/06/17 12:31 DC 11/06/17 12:40 0.1 MG Problem Qualifiers (1) Depression: Depression Type: unspecified Qualified Codes: F32.9 - Major depressive disorder, single episode, unspecified
[2017-11-06] MEDS: CLONIDINE HCL 0.1 MG TAB PO SCH ×2 (16:05→23:15)
[2017-11-06 16:06] VITALS: BP 115/77; PULSE 88
[2017-11-06 21:37] VITALS: BP 101/63; PULSE 64; TEMP 36.9
[2017-11-07 07:13] VITALS: BP_SYST 107; BP_SYST 123; BP_DIAS 63; BP_DIAS 82; PULSE 72; PULSE 81; TEMP 36.5
[2017-11-07] MEDS: CLONIDINE HCL 0.1 MG TAB PO SCH ×2 (07:49→11:24)
[2017-11-07] MEDS: NICOTINE 14 MG/24 HR TDSY TD SCH (07:52)
[2017-11-07 09:57] VITALS: BP 107/65; PULSE 80; TEMP 36.8
--- NOTE | 2017-11-07 11:04 | Discharge Instructions ---
Discharge Information Report Includes Report will include the: Discharge Instructions & Summary Admission Admission Date / Time: Nov 03, 2017 at 17:56 Reason for Admission: MDD Discharge Discharge Diagnosis / Problem: Substance abuse Condition at Discharge: Absence of suicidal ideation Discharge Goals Goal(s): Specific goals (resolution if SI) Activity Recommendations Activity Limitations: resume your previous activity . Instructions / Follow-Up Instructions / Follow-Up . SPECIAL CARE INSTRUCTIONS: 1. Follow through with your scheduled aftercare appointments. If unable to keep an appointment, please call to reschedule. 2. Take your medication only as prescribed. Medication should not be changed or stopped without the approval of your doctor. In the event of worsening symptoms or concerns about side effects, contact your doctor immediately. 3. Utilize new healthy coping skills, anger management skills, and stress management skills learned during your hospitalization. Journal feelings and process them with a support person. Identify stressors or situations that may result in relapse, deterioration or inappropriate behaviors and develop a plan to deal with those issues. 4. If your coping skills are ineffective and you are in crisis, contact your outpatient providers for direction. If unable to reach your providers, please call the CAN HELP LINE AT or go to the closest Emergency Room. 5. Avoid alcohol and un-prescribed drugs. 6. You have been provided with the Mental Health Advance Directives Pamphlet for your review. AFTERCARE APPOINTMENTS: * Please call your insurance company prior to your scheduled appointment to confirm your aftercare providers are covered. Take your insurance information to your appointments. . Discharge / Aftercare Planning Primary Care Physician: Name: none, recommend that you get PCP when you are discharging from rehab Partial or Psych Rehab: Name: [facility] ([facility]) Date Of Appointment: Nov 07, 2017 Appointment Comments: They will pick you up at 11:30 to transport to rehab, follow up after dc Home Health Services: Home Health Services: none . Follow-Up Care Plan for Follow-Up Care: Patient was discharged directly to inpatient rehabilitation for treatment of substance use disorder Current Hospital Diet Patient's current hospital diet: Regular Diet Discharge Diet Recommended Diet: Regular Diet Procedures Procedures Performed: No Pending Studies Pending Studies at Discharge: No Medical Emergencies . Who to Call and When: Medical Emergencies: For questions or emergencies related to your hospital stay, please contact the Inpatient Behavioral Health Unit at [phone]. A intake clinician is on-call 02/11 for the Behavioral Health Unit for emergencies At any time you feel your situation is an emergency, you may also call 911 immediately. . Non-Emergent Contact Non-Emergency issues call your: Primary Care Provider, Therapist Advance Directives Do You Have an Existing Mental: No Existing Living Will: No Existing Power of Chief Pharmacist: No Advance Directives Info Given: To Pt/S.O. Advance Directives Reason: Declines as Mental Health Visit. Discharge Summary Admission HPI Per the Admitting provider: According to records, the patient presented to the emergency room yesterday with police who stated they found the patient in the [place] with a rope made into a noose. His girlfriend was present in the ER and stated that yesterday morning he came to her residence and asked her to get him dress pants and a dress shirt because he wanted to be "dressed up when they find me." He told her that "apparently drugs are not going to kill me, so that is a failed suicide attempt. I need to try something different." He then went to the [facility] and got a rope, and left in his car. His girlfriend called his counselor at [facility], who called the police. The police found him in the [facility] with the rope which he had made into a noose. She reported reported that the patient has a long addiction history and has been in rehab many times. He had a counselor at [facility], but has not done in months, and does not see a psychiatrist or take medications. The patient himself denied all of the above, and stated that he was in the [place] because he was trying to find money he lost the night before, and was using his sweatshirt tied in a knot to knock over weeds. His drug screen was positive for methamphetamine/amphetamine, MDMA, and THC, and he was tangential and a poor historian. He admitted to meth use, and said he wanted to get back on Suboxone , which she had been getting off the streets. He started to go through opiate withdrawal, so decided to use meth. He said he been noncompliant with therapy at [facility] because he was traveling for a job. He reported his main stressor as "relationship issues." On my assessment, the patient states he got into a fight with his girlfriend whom he lives with the night prior to presentation, so went to a field nearby and "camped out." He used a large amount of methamphetamine IV while there, stating he was withdrawing from Suboxone, but could not get any more Suboxone, so got meth instead. He says he "did a really big shot of meth" and was "surprised it didn't kill me." Denies that he was trying to end his life, but says as he was doing it, he thought he might . He said he lost some money in the field, so returned to the house the next day to get clean clothes and "I think she thought I was gonna hang myself, and she even asked me, and I said no. " He changed his clothes and took a piece of rope "with a loop on one end" and an old sweatshirt with him, as he wanted to look for his money. He says when came out of the [place] "there was a bunch of police there, my girl called and said I was gonna go up to the [place]zo and hang myself." He admits he was "depressed because we were fighting, "and she was angry with him because she found out he was using Suboxone. He says his GF doesn't use drugs, but isn't concerned she'll end the relationship, "she still loves me." States "people think it's weird because of the age difference, but it's not weird for us" (She is in her mid 50s). He admits he doesn't remember some of what happened the past 2 days. He denies persistent depressive symptoms, other than in the context of arguing with his GF. He denies persistent mood symptoms (says mood was down for about 1 day due to arguing with girlfriend), and denies any history of abdirizak, psychosis, or anxiety other than when intoxicated/ withdrawing. He is vague and gives conflicting reports about his drug use, unable to state when he last used various substances or for how long. Hospital Course (1) Depression 06/07--Differential includes MDD (patient denies ongoing depressive symptoms), personality disorder, and substance induced mood disorder (most likely diagnosis ). --Continue inpatient treatment on a 302 involuntary commitment, and continue to gather information towards the need for ongoing commitment. Will need to determine need to file for a 303 tomorrow. Get collateral from GF and counselor at [facility]. Patient denying that he had a suicide attempt yesterday, although GF and police both report he had a noose and went into the [place] with intent to hang himself. --Q 15 min checks for safety. --Encourage group attendance and participation, work on health coping skills and safety plan. --Family meeting with GF. --Get collateral from previous therapist at [facility], specifically with regards to concerns for underlying mental illness. 11/05 - No SI - Meeting with girlfriend today 11/06 - continues to deny SI and we expect likely discharge on Wednesday when 302 expires unless there is a change in clinical status or new information that would suggest elevated safety risk becomes apparent. 11/07 -Patient continues to deny suicidal ideation or any safety concerns since time of admission to this hospital. He has been accepted at [facility] for inpatient substance abuse rehabilitation and endorses willingness to comply with treatment recommendations. In the absence of evidence of ongoing suicidal ideation or other acute safety risks, it is felt that he would most benefit from treatment of his underlying substance use disorder and will be discharged for that purpose to the rehabilitation facility today at his request. (2) Opiate abuse 11/04--monitor for signs of withdrawal, and considering use of clonidine protocol if needed. --Educated about the risks of ongoing substance abuse and the recommendations for abstinence from drugs of abuse. Patient has poor insight and is not necessarily forthcoming with information. --Encourage inpatient rehab. --Avoid controlled substances due to the high risk of abuse/misuse/negative outcomes. --Brief intervention was offered and accepted. Intervention was greater than 5 min in length. Brief interventions include: 1. Assess Readiness to Quit, 2. Advise: Help Patient to Reduce or Abstain from Drug Use, 3. Agree: Set Specific, Feasible Goals, 4. Assist: Anticipate barriers, Problem-Solving Solutions. Social work to 5. Arrange: Referrals to appropriate treatment. Summary of intervention: The patient is in precontemplation stage with regards to transtheoretical model of change. The patient is advised to decrease drug use due to negative effect on mental health and risk of interactions with prescription medications. The patient agreed to return to outpatient treatment at [facility] and will be provided with recovery materials to continue to education self on how to cope with their condition without using. 11/06 - started on clonidine protocol this AM for mild w/d sx. tolerated well w/ good effect. 11/07 - Discharge to rehab today - Denies active symptoms of withdrawal. Clonidine has been helpful and we discussed continuation however he preferred to discuss with provider at the rehab if needed and will defer discharge prescription for that medication presently. (3) Methamphetamine abuse 11/04--see above. 11/05 - [facility] will not accept back unless he goes to rehab - Patient will to explore rehab with [facility] inpatient 11/06 - pt expressing willingness to pursue inpatient rehab admission and will facilitate as able (4) Nicotine dependence 11/04--patch and gum as needed for cravings. Smoking cessation education. Refer for substance abuse treatment. (5) Hepatitis C AST elevated at 132, ALT WNLs. Patient denies alcohol use, but cannot rule out surreptitious alcohol use. Also has h/o hepatitis C per chart. elevated Follow- up with PCP. Risk Factors Assessment Male: Yes : Yes /single/: Yes Higher / Fall in social status: No Health problems: Yes Mental Health Diagnoses: Yes Substance use disorders: Yes Previous attempt: No Family history of suicide: No Previous psychiatric stay: No Hopelessness: No Smoker: Yes Protective Factors Assessment Mormonism beliefs: No : No Responsible for young children: No Employed: No Stable relationships: Yes Supportive family: No Good rapport with provider: No Day of Discharge Assessment At time of discharge patient is adequately groomed, in no acute distress, makes good eye contact. Speech normal rate volume and tone. Thought process linear logical and goal-directed. He describes his mood as "really good" and affect appears calm, euthymic. He denies any thoughts of harm to himself or anyone else. There is no evidence of overt psychosis or response to internal stim. He is fully oriented. Memory intact in all spheres grossly. Insight judgment and impulse control appear improved since time of admission however likely chronically limited. Laboratory Refer to printed laboratory reports Test 11/03/17 12:45 11/03/17 13:18 Urine Color DK YELLOW Urine Appearance CLEAR Urine pH 5.0 Urine Specific [place] 1.027 Urine Protein 1+ Urine Glucose (UA) NEG Urine Ketones 3+ Urine Occult Blood NEG Urine Nitrite NEG Urine Bilirubin NEG Urine Urobilinogen NEG Urine Leukocyte Esterase NEG Urine WBC (Auto) 1-5 Urine RBC (Auto) 0-4 Urine Hyaline Casts (Auto) 1-5 Urine Epithelial Cells (Auto) 5-10 Urine Bacteria (Auto) NEG Urine Opiates Screen NEG Urine Methadone, Qualitative NEG Urine Barbiturates NEG Urine Phencyclidine (PCP) Level NEG Urine Amphetamines Confirmation Pending Ur Amphetamine/Methamphetamine POS Urine Methamphetamine Confirmation Pending MDMA (Ecstasy) Screen POS Urine Benzodiazepines Screen NEG Urine Cocaine Metabolite NEG Urine Marijuana (THC) POS Urine Marijuana (THC Carboxy Acid) Pending White Blood Count 8.03 Red Blood Count 4.93 Hemoglobin 14.0 Hematocrit 41.4 Mean Corpuscular Volume 84.0 Mean Corpuscular Hemoglobin 28.4 Mean Corpuscular Hemoglobin Concent 33.8 Platelet Count 258 Mean Platelet Volume 9.3 Neutrophils (%) (Auto) 60.7 Lymphocytes (%) (Auto) 26.3 Monocytes (%) (Auto) 11.5 Eosinophils (%) (Auto) 1.2 Basophils (%) (Auto) 0.2 Neutrophils # (Auto) 4.87 Lymphocytes # (Auto) 2.11 Monocytes # (Auto) 0.92 Eosinophils # (Auto) 0.10 Basophils # (Auto) 0.02 RDW Standard Deviation 41.5 RDW Coefficient of Variation 13.7 Immature Granulocyte % (Auto) 0.1 Immature Granulocyte # (Auto) 0.01 Sodium Level 136 Potassium Level 4.1 Chloride Level 102 Carbon Dioxide Level 23 Anion Gap 11.0 Blood Urea Nitrogen 26 Creatinine 0.93 Est Creatinine Clear Calc Drug Dose 102.8 Estimated GFR () 125.5 Estimated GFR (Non- 108.2 BUN/Creatinine Ratio 28.5 Random Glucose 70 Calcium Level 8.9 Total Bilirubin 0.7 Direct Bilirubin 0.2 Aspartate Amino Transferase (AST) 132 Alanine Aminotransferase (ALT) 66 Alkaline Phosphatase 97 Total Protein 8.7 Albumin 4.2 Thyroid Stimulating Hormone (TSH) 1.500 Ethyl Alcohol mg/dL < 3.0 Total Time Total Time Spent (min): Greater than 30 minutes Total Time Included: examination of the patient, discharge planning, medication reconciliation Transition of Care Transition of care record: was reviewed with the patient Tobacco Cessation at Discharge Smoking Status: Current Every Day Smoker (1 PPD x 10 yrs) FDA approved Prescription: declined med & out pt counseling Problem Qualifiers (1) Depression: Depression Type: unspecified Qualified Codes: F32.9 - Major depressive disorder, single episode, unspecified
[2017-11-07 11:17] VITALS: BP 107/65; PULSE 80; TEMP 36.8; O2SAT 100
[2017-11-07 11:25] VITALS: BP 122/73; PULSE 69; TEMP 36.4
== END 2017-11-07 11:50 | DRG 881 ==
LOC: C.EDB 12:23 → C.MHU 17:56
PROVIDERS: ADMIT Psychiatry & Neurology Child & Adolescent Psychiatry; ATTEND Psychiatry & Neurology Psychiatry
DX: F32.9 Major depressive disorder, single episode, unspecified (principal); R45.851 Suicidal ideations; F11.10 Opioid abuse, uncomplicated; F15.10 Other stimulant abuse, uncomplicated; B19.20 Unspecified viral hepatitis C without hepatic coma; F17.210 Nicotine dependence, cigarettes, uncomplicated; Z79.899 Other long term (current) drug therapy; Z79.1 Long term (current) use of non-steroidal anti-inflammatories (NSAID); Z87.442 Personal history of urinary calculi; Z84.1 Family history of disorders of kidney and ureter; Z82.49 Family history of ischemic heart disease and other diseases of the circulatory system; Z81.1 Family history of alcohol abuse and dependence; Z81.3 Family history of other psychoactive substance abuse and dependence